=== PATIENT | male | born 1955 | race Caucasian/White ===

== ENCOUNTER 2022-12-28 06:05 | Observation (INO) ==
--- NOTE | 2022-12-21 15:20 | XRay Report ---
INDICATION: pre surgery TECHNIQUE: PA and lateral upright chest x-ray COMPARISON: Previous chest x-rays dated 09/21/2019, 07/02/2019 FINDINGS: Lungs: Lungs are negative. No focal pulmonary parenchymal infiltrate or mass Heart, vascular: No significant cardiomegaly. Pulmonary vascularity is normal. No pulmonary edema or pulmonary congestion Mediastinum, abril: No mediastinal widening. No hilar mass Pleura:No pleural fluid. No pleural-based mass or calcification Thoracic spine, ribs: No thoracic compression fracture. Ribs are negative. No fracture. No lytic lesion IMPRESSION: 1. Negative PA and lateral chest x-ray 2. No significant interval change Interpreted and Authenticated by: Vin Mcgowan 12/21/22
[2022-12-21 18:36] LABS: Basophils # (Auto) 0.07 K/mcL (0.00-0.30); Basophils % (Auto) 0.7 % (0.0-2.0); Eosinophils # (Auto) 0.35 K/mcL (0.00-0.70); Eosinophils % (Auto) 3.6 % (0.0-7.0); Hematocrit 44.5 % (40.1-51.0); Hemoglobin 14.2 g/dL (13.7-17.5); Lymphocytes % (Auto) 23.7 % (15.5-49.0); Mean Cell Volume 89.5 fL (80.0-100.0); Mean Corpuscular HGB Conc 31.9 g/dL (31.0-36.0); Mean Platelet Volume 11.8 fL (8.8-12.5); Monocytes # (Auto) 1.04 K/mcL (0.10-0.90); Monocytes % (Auto) 10.7 % (1.0-12.0); Neutrophils % (Auto) 60.9 % (38.0-78.0); Platelet Count 243 K/mcL (140-440); RBC 4.97 M/mcL (4.63-6.08); WBC 9.7 K/mcL (4.5-11.0)
[2022-12-21 19:07] LABS: INR 1.1 (0.9-1.1); Prothrombin Time 14.1 sec (11.9-14.5)
[2022-12-21 21:45] LABS: ALT/SGPT 22 U/L (<40); AST/SGOT 15 U/L (<40); Albumin 4.3 gm/dL (3.2-5.2); Albumin/Globulin Ratio 1.2 (1.0-2.3); Alkaline Phosphatase 80 U/L (39-117); Bilirubin,Total 0.6 mg/dL (0.1-1.0); Blood Urea Nitrogen 15 mg/dL (8-23); Calcium 10.8 mg/dL (8.6-10.4); Carbon Dioxide 26 mmol/L (22-30); Chloride 101 mmol/L (96-108); Globulin 3.5 gm/dL (2.2-3.7); Glomerular Filtration Rate 91; Glucose 142 mg/dL (70-105)
--- NOTE | 2022-12-22 07:34 | EKG ---
[facility] Test Date: 2022-12-21 Pat Name: Cali Adam Department: [facility] Room: Gender: Male Opthalmic Tech: : 1955 Requested By: Waylon Kim Order Number: [id number] Reading MD: Som Huitron Measurements Intervals [place] Rate: 58 P: 42 ID: [id number] QRS: -50 QRSD: 126 T: 31 QT: 479 QTc: 472 Interpretive Statements Sinus rhythm Consider left atrial enlargement RBBB Electronically Signed On 12-22-2022 7:34:05 PST by Som Huitron /store/[email or web address]/[id number]
[2022-12-24 15:04] LABS: Estimated Average Glucose(eAG) 177 mg/dL; Hemoglobin A1C 7.8 % Hgb (4.0-6.0)
[2022-12-28] MEDS ORDERED: ceFAZolin 2 GM in DEXTROSE 5% IN WATER 50 ML IV SCH (06:45)
[2022-12-28] MEDS ORDERED: VANCOMYCIN 1,500 MG in 0.9 % SODIUM CHLORIDE 500 ML IV SCH (07:15)
[2022-12-28] MEDS ORDERED: GLYCOPYRROLATE 0.2 MG/ML VIAL IV ONE (07:27)
[2022-12-28] MEDS ORDERED: SUCCINYLCHOLINE 20 MG/ML ML IV ONE (07:27)
[2022-12-28] MEDS ORDERED: ePHEDrine 50 MG/5 ML SYRINGE (ANEST) IV ONE (07:27)
[2022-12-28] MEDS ORDERED: SUGAMMADEX SODIUM 200 MG/2 ML VIAL IV ONE (07:27)
[2022-12-28] MEDS ORDERED: ROCURONIUM 10 MG/ML ML IV ONE (07:27)
[2022-12-28] MEDS ORDERED: PHENYLephrine 1 MG/10 ML SYRINGE (ANEST) ONE (07:27)
[2022-12-28] MEDS ORDERED: fentaNYL 250 MCG/5 ML VIAL IV ONE (07:27)
[2022-12-28] MEDS ORDERED: DEXAMETHASONE 10 MG/ML VIAL ONE (07:27)
[2022-12-28] MEDS ORDERED: LIDOCAINE HCL/PF 100 MG/5 ML SYRINGE IV ONE (07:27)
[2022-12-28] MEDS ORDERED: PROPOFOL 200 MG/20 ML VIAL IV ONE (07:27)
[2022-12-28] MEDS ORDERED: ONDANSETRON 4 MG/2 ML VIAL ONE (07:27)
[2022-12-28] MEDS ORDERED: MAGNESIUM SULFATE 2 GM/50 ML BAG IV ONE (07:27)
[2022-12-28] MEDS ORDERED: BUPIVACAINE W/EPI 0.25% 50 ML VIAL IJ ONE (07:30)
[2022-12-28] MEDS ORDERED: MEPERIDINE 25 MG/ML VIAL IV PRN (09:08)
[2022-12-28] MEDS ORDERED: ONDANSETRON 4 MG/2 ML VIAL IV PRN ×2 (09:08→10:08)
[2022-12-28] MEDS ORDERED: IPRATROPIUM/ALBUTEROL 3 ML AMPUL.NEB NEB PRN (09:08)
[2022-12-28] MEDS ORDERED: ACETAMINOPHEN 1,000 MG/100 ML BAG IV ONE (09:08)
[2022-12-28] MEDS ORDERED: HYDROmorphone 0.5 MG/0.5 ML SYRINGE IV PRN (09:08)
[2022-12-28] MEDS ORDERED: METHOCARBAMOL 1,000 MG/10 ML VIAL IV PRN (09:08)
[2022-12-28] MEDS: fentaNYL 100 MCG/2 ML VIAL IV PRN ×4 (10:42→10:48)
--- NOTE | 2022-12-28 12:15 | Brief Operative Note ---
Brief Operative Note Date of procedure: 12/28/22 Pre-op diagnosis: Symptomatic Cholelithiasis Post-op diagnosis: same Procedure: 1. Laparoscopic Lysis of Adhesions 2. Laparoscopic Cholecystectomy Grafts/Implants: No Anesthesia: GETA Findings: 1. Significant adhesions to anterior abdominal wall from prior procedures 2. Moderately edematous stone filled gallbladder Complications: none Surgeon: Waylon Kim Estimated blood loss (cc): 5 Specimens Removed/Pathology: other (gallbladder ) Condition: stable Disposition: PACU
[2022-12-28] MEDS: oxyCODONE HCL 5 MG TABLET PO PRN ×4 (12:19→23:55)
[2022-12-28] MEDS: HYDROmorphone 0.5 MG/0.5 ML SYRINGE IV PRN ×2 (13:10→14:24)
[2022-12-28] MEDS: DEXTROSE 5%-LR 1,000 ML IV SCH (13:19)
[2022-12-28] MEDS: ACETAMINOPHEN 650 MG/65 ML BAG IV SCH (17:56)
[2022-12-29] MEDS: ACETAMINOPHEN 650 MG/65 ML BAG IV SCH ×3 (02:39→18:01)
[2022-12-29] MEDS: HYDROmorphone 0.5 MG/0.5 ML SYRINGE IV PRN (02:51)
[2022-12-29] MEDS: DEXTROSE 5%-LR 1,000 ML IV SCH ×3 (05:09→19:45)
[2022-12-29 07:21] LABS: Hematocrit 38.9 % (40.1-51.0); Hemoglobin 12.8 g/dL (13.7-17.5); Mean Cell Volume 88.8 fL (80.0-100.0); Mean Corpuscular HGB Conc 32.9 g/dL (31.0-36.0); Mean Platelet Volume 12.2 fL (8.8-12.5); Platelet Count 211 K/mcL (140-440); RBC 4.38 M/mcL (4.63-6.08); Red Cell Distribution Width 13.5 % (11.5-14.5); WBC 22.3 K/mcL (4.5-11.0)
[2022-12-29 07:42] LABS: ALT/SGPT 22 U/L (<40); AST/SGOT 17 U/L (<40); Albumin 3.4 gm/dL (3.2-5.2); Albumin/Globulin Ratio 1.3 (1.0-2.3); Alkaline Phosphatase 64 U/L (39-117); Bilirubin,Total 0.6 mg/dL (0.1-1.0); Blood Urea Nitrogen 17 mg/dL (8-23); Calcium 8.4 mg/dL (8.6-10.4); Carbon Dioxide 26 mmol/L (22-30); Chloride 99 mmol/L (96-108); Globulin 2.7 gm/dL (2.2-3.7); Glomerular Filtration Rate 86; Glucose 171 mg/dL (70-105)
[2022-12-29] MEDS: oxyCODONE HCL 5 MG TABLET PO PRN ×2 (08:37→18:03)
[2022-12-29] MEDS ORDERED: BISACODYL 10 MG SUPP.RECT PR SCH (09:33)
--- NOTE | 2022-12-29 09:33 | General Surgery Progress Note ---
SUBJECTIVE Subjective Patient information: Note initiated : 12/29/22 at 9:28 am Service Date, if different from initiated Date: [] Patient: Cali Adam 67 y/o M admitted on 12/28/22 for Laparoscopic Cholecystectomy . Chief Complaint: [] feels well this am, not passing gas yet, pain control has been good Constitutional Vitals: Vital Signs Temp Pulse Resp BP Pulse Ox O2 Del Method O2 Flow Rate 98.1 F 65 20 127/75 95 Room Air 6 12/29/22 08:00 12/29/22 08:00 12/29/22 08:00 12/29/22 08:00 12/29/22 08:00 12/29/22 08:00 12/28/22 10:13 Period Temp Pulse Resp BP Sys/Franco Pulse Ox O2 Del Method O2 Flow Rate Last 24 Hr 97.0 F-98.2 F 46-82 10-20 96-157/49-85 86-98 Room Air-Simple Mask 6-6 Intake and Output 12/28/22 12/29/22 12/29/22 19:59 03:59 11:59 Intake Total 545 1065 200 Output Total 530 300 Balance 15 765 200 Weight 194 lb 14.4 oz Intake & Output: Intake & Output 12/28/22 12/29/22 12/29/22 19:59 03:59 11:59 Intake Total 545 1065 200 Output Total 530 300 Balance 15 765 200 Weight 194 lb 14.4 oz Intake: IV 65 1065 Dextrose 5%-Lactated Ringers 1, 1000 000 ml @ 75 mls/hr IV .[id number] [facility] Rx#:[id number] Oral 480 200 Output: Drainage 60 Right Lower Abdomen 60 Drainage 45 50 Right Lower Abdomen 45 50 Void Amount 425 250 Other: Meal Dinner Percent of Meal Consumed 100% Feeding Ability Independent Urine Appearance Clear Clear Urine Color Yellow Yellow Exam: Looks well, non toxic Respiratory Respiratory exam: Present normal respiratory exam Additional comments: Normal effort and no distress Cardiovascular Cardiovascular exam: Present normal rate and rhythm and RRR GI/Abdominal Additional comments: soft with mild distension, non tender, drain serosang, trocar sites look good Extremities Exam Additional comments: well perfused A/P Assessment and plan (1) Status post laparoscopic cholecystectomy: Assessment and plan: POD #1 Laparoscopic Cholecystectomy Clinically looks well Elevated WBC likely reactive Increase activity and add suppositories, hold discharge for now Status: Acute Time Spent With Patient Time: Total time spent is greater than 50% in coordination of care (as documented) at patient's floor/unit and/or counseling patient:
--- NOTE | 2022-12-29 19:05 | Internal Medicine Consult Note ---
HPI Date of Consult Consult Date: 12/29/22 Primary Care Provider: Nikia Matos Consult Narrative Patient Information: Note initiated : 12/29/22 at 7:04 pm Service Date, if different from initiated Date: [] Patient: Cali Adam 67 y/o M admitted on 12/28/22 for Laparoscopic Cholecystectomy . Chief Complaint: [] cc:: CC: Waylon Kim MD Patient presented for elective cholecystectomy for symptomatic cholelithiasis with biliary colic. Patient underwent laparoscopic cholecystectomy and lysis of adhesions on the . Gallbladder was noted to be moderately edematous and filled with stones. Patient also carries a history of diabetes and and hypertension and history of prothrombin gene mutation on Eliquis. Medical management requested. Surgeon awaiting bowel function. Patient does complain of abdominal pain. He is passing gas but no bowel movements. Review of Systems: denies headache/fever/chills/nausea/vomiting/chest pain/cough/dyspnea/diarrhea. Otherwise see above. Review of Systems: Pertinent positives as above. Denies headache/fever/chills/nausea/vomiting/chest or abdominal pain/cough/dyspnea/diarrhea. Remaining 10 point review of system reviewed negative PFSH PFSH All Active Problems Status post laparoscopic cholecystectomy (Acute) Calculus of gallbladder (Chronic) Hypertension (Chronic) Diabetes mellitus (Chronic) Dyshidrotic eczema (Chronic) Poor appetite (Chronic) Bowel habit changes (Chronic) Stomach pain (Chronic) Ringing of ears (Chronic) Joint pain (Chronic) Arthritis (Chronic) Hay fever (Chronic) Hernia (Chronic) Stroke (Chronic) Erectile dysfunction (Chronic) Nephrolithiasis (Chronic) Hematuria (Acute) No-show for appointment (Acute) Gout (Acute) Medical History Arthritis Bowel habit changes Calculus of gallbladder Diabetes mellitus Type 2 on insulin No proteinuria on ARB Nl GFR Dyshidrotic eczema Erectile dysfunction Hay fever Hernia Hypertension Long standing Normal adrenal and renal imaging except left sided nephrolithiasis with stent in 2018 Joint pain Poor appetite Ringing of ears Stomach pain Stroke Surgical History History of ankle surgery (~1987) Left History of back surgery (~1968) Broken back History of hernia repair History of knee surgery (~1985) Right History of partial colectomy (~11/2019) History of surgery (~06/2019) Left ureteral stent Family History Father Heart attack Arthritis Hypertension Mother Cancer Social History marital status: unknown occupational status: retired smoking status: Former smoker MEDS/ALLERGIES Home Medications and Allergies Home Medications Medication Instructions Recorded Confirmed Type amlodipine 10 mg tablet 10 mg PO QDAY 12/25/21 12/21/22 History apixaban 5 mg tablet (Eliquis) 5 mg PO BID 12/25/21 12/21/22 History carvedilol 25 mg tablet 25 mg PO BID 12/25/21 12/21/22 History clobetasol 0.05 % topical cream 1 applic topical BID 12/25/21 12/21/22 History insulin aspart U-100 100 unit/mL 1 sliding scale dose subcut 12/25/21 12/21/22 History (3 mL) subcutaneous pen (Novolog USEASDIRECTD FlexPen U-100 Insulin aspart) insulin detemir U-100 100 unit/mL 20 unit subcut QHS 12/25/21 12/21/22 History subcutaneous solution (Levemir U-100 Insulin) irbesartan 300 mg tablet 300 mg PO QDAY 12/25/21 12/21/22 History metformin 500 mg tablet 500 mg PO BID 12/25/21 12/21/22 History potassium chloride 20 mEq 20 meq PO QDAY 12/25/21 12/21/22 History tablet,extended release(part/cryst) (Klor-Con M) triamcinolone acetonide 0.5 % 1 applic topical BID 12/25/21 12/21/22 History topical cream zinc 50 mg tablet 50 mg PO QDAY 12/25/21 12/21/22 History cholecalciferol (vitamin D3) 100 mcg PO DAILY 12/30/21 12/21/22 History hydrochlorothiazide 25 mg tablet 25 mg PO QAM #30 tabs 12/30/21 12/21/22 Rx [place] Xl 1 cap PO DAILY 12/21/22 12/21/22 History doxazosin 1 mg tablet 1 mg PO BID 12/21/22 12/21/22 History vitamin B complex (B 1 tab PO QDAY 12/21/22 12/21/22 History Complex-Vitamin B12 tablet) Allergies Allergy/AdvReac Type Severity Reaction Status Date / Time ciprofloxacin [From Cipro] Allergy Unknown Unknown Verified 12/28/22 06:20 Penicillins Allergy Unknown Unknown Verified 12/28/22 06:20 EXAM Constitutional Vitals: Temp Pulse Resp BP Pulse Ox O2 Del Method O2 Flow Rate 98.7 F 66 20 121/78 96 Room Air 6 12/29/22 16:00 12/29/22 16:00 12/29/22 16:00 12/29/22 16:00 12/29/22 16:00 12/29/22 16:00 12/28/22 10:13 DATA Data Completed and Pending Labs: Labs from last 24 hours 12/29/22 12/29/22 05:22 05:22 WBC 22.3 H RBC 4.38 L Hgb 12.8 L Hct 38.9 L MCV 88.8 MCH 29.2 MCHC 32.9 RDW 13.5 Plt Count 211 MPV 12.2 Sodium 134 Potassium 3.5 Chloride 99 Carbon Dioxide 26 Anion Gap 9.0 BUN 17 Creatinine 0.9 GFR Calculation 86 Glucose 171 H Calcium 8.4 L Total Bilirubin 0.6 AST 17 ALT 22 Alkaline Phosphatase 64 Total Protein 6.1 Albumin 3.4 Globulin 2.7 Albumin/Globulin Ratio 1.3 A/P Narrative A/P Narrative: A/P: *s/p Lap cholecystectomy and lysis of adhesions (12/28) -per surgeon, and awaiting bowel fxn -IVF's/diet per surgeon *DM2: -decrease home basal dose for decreased PO intake and titrate back up, SSI *HTN: on norvasc/coreg/irbesartan/doxazosin -restart BP gradually as needed, BP currently ok w/o meds *Prothrombin gene mutation: On Eliquis, temporarily held periop *DVT ppx: per surgery Time Spent With Patient Time: Total time spent is greater than 50% in coordination of care (as documented) at patient's floor/unit and/or counseling patient: Initial: Total time with patient: 55 - 74 minutes
[2022-12-29] MEDS ORDERED: DEXTROSE 31 GM ORAL.SUSP PO PRN (20:07)
[2022-12-29] MEDS ORDERED: DEXTROSE 50% 50 ML VIAL IV PRN (20:07)
[2022-12-29] MEDS ORDERED: hydrALAZINE 20 MG/ML VIAL IV PRN (20:15)
[2022-12-29] MEDS ORDERED: ENALAPRILAT 1.25 MG/ML VIAL IV PRN (20:15)
[2022-12-29] MEDS ORDERED: INSULIN GLARGINE, HUMAN 1 UNIT/0.01 ML SQ SCH (21:00)
[2022-12-29] MEDS: DOXAZOSIN 1 MG TABLET PO SCH (21:22)
[2022-12-29] MEDS: INSULIN LISPRO 1 UNIT/0.01 ML UNIT SQ SCH (21:32)
[2022-12-29] MEDS ORDERED: BISACODYL 10 MG SUPP.RECT PR PRN (22:50)
[2022-12-30] MEDS: ACETAMINOPHEN 650 MG/65 ML BAG IV SCH ×3 (02:00→08:32)
[2022-12-30] MEDS: DEXTROSE 5%-LR 1,000 ML IV SCH (04:51)
[2022-12-30 06:51] LABS: Hemoglobin 12.7 g/dL (13.7-17.5); Mean Cell Volume 89.2 fL (80.0-100.0); Mean Corpuscular HGB Conc 32.6 g/dL (31.0-36.0); Mean Platelet Volume 11.6 fL (8.8-12.5); Platelet Count 180 K/mcL (140-440); RBC 4.37 M/mcL (4.63-6.08); Red Cell Distribution Width 13.6 % (11.5-14.5); WBC 12.4 K/mcL (4.5-11.0)
[2022-12-30 07:17] LABS: ALT/SGPT 28 U/L (<40); AST/SGOT 20 U/L (<40); Albumin 3.4 gm/dL (3.2-5.2); Albumin/Globulin Ratio 1.2 (1.0-2.3); Alkaline Phosphatase 70 U/L (39-117); Bilirubin,Total 0.8 mg/dL (0.1-1.0); Blood Urea Nitrogen 10 mg/dL (8-23); Calcium 8.4 mg/dL (8.6-10.4); Carbon Dioxide 29 mmol/L (22-30); Chloride 102 mmol/L (96-108); Globulin 2.8 gm/dL (2.2-3.7); Glomerular Filtration Rate 96; Glucose 138 mg/dL (70-105)
--- NOTE | 2022-12-30 07:52 | Operative Note ---
DATE OF OPERATION: 12/28/2022 DATE OF PROCEDURE: 12/28/2022 PREOPERATIVE DIAGNOSIS: Symptomatic cholelithiasis with episodes of biliary colic. POSTOPERATIVE DIAGNOSIS: Symptomatic cholelithiasis with episodes of biliary colic. OPERATIVE PROCEDURE: 1. Laparoscopic lysis of adhesions. 2. Laparoscopic cholecystectomy. SURGEON: Waylon Kim M.D. ANESTHESIA: General. PREOPERATIVE MEDICATIONS: Vancomycin IV. INDICATIONS: The patient is a 67-year-old male who has had a fair amount of abdominal malaise and symptomatology over the past several years. Some of his symptoms have been consistent with potential symptomatic cholelithiasis, but much of his symptomatology has not. Imaging is consistent with ultrasound as well as CT, both of which have confirmed and demonstrated an extensive number of stones in the gallbladder, but no evidence of wall thickening or other abnormalities in that regard. After several visits and consultations he very much wished to undergo surgery in hopes that this gallbladder removal would resolve much of his symptomatology. We discussed with him at length the fact that given his Eliquis and other medical issues and concerns that he had some significant risk related to having this procedure, but he wished to proceed regardless. Risks, benefits, potential complications, and alternative treatment options were all discussed at length, including but not limited to bleeding, infection, cosmetic dissatisfaction, abnormal scarring and other issues. He gave full informed consent and wished to proceed. We also discussed the potential need for drain placement, conversion to open, partial or fenestrating subtotal cholecystectomy, risk of injury to bowel and other structures, particularly given his extensive prior operative history and other issues and in particular the placement of a large mesh on the abdominal wall that we had placed previously. All this was discussed at length. He gave full informed consent and wished to proceed. DESCRIPTION OF PROCEDURE: The patient was taken to the OR and placed supine on the OR table, placed under general anesthesia and intubated. Bilateral SCDs were applied and pressure sensitive areas were carefully padded. The abdomen was widely prepped and draped in a sterile fashion. Procedure began with access of the peritoneal cavity utilizing a 0-degree, 5-mm scope through a Visiport in the right upper abdomen. Once we obtained pneumoperitoneum via peritoneal access the 0-degree scope was utilized to access evaluate the area of access for any evidence of injury; none was seen. We then changed out the 0-degree scope for a 30-degree scope and placed our remaining trocars. This included an additional 5 mm right upper abdominal trocar and a 12 mm subxiphoid trocar, both of which were easily placed and then we performed a fairly extensive laparoscopic lysis of adhesions to take down what appeared to be a large amount of omentum to the area of our intended periumbilical 5 mm port in, in and around the area of the previously placed abdominal mesh. This was all done sharply. No thermal energy was used to take down any adhesions at all. This was all done sharply under direct vision and we gradually cleared off an area just superior to the mesh in the midline that would allow us to place a supraumbilical 5 mm trocar and clear the mesh without injuring or damaging it. Once we cleared this area off adequately, we were able to go ahead and place an additional final 5 mm working trocar in a supraumbilical location midway between the umbilicus and the xiphoid process. We then placed the patient in reverse Trendelenburg position, airplaned towards the left side. The gallbladder fundus was identified, grasped and retracted towards the right shoulder. There were adhesions to the mesentery to the omentum and the mesentery of the transverse colon as well as the duodenum. These were all taken down sharply, again no thermal energy was used here. Once we had taken these down extensively, we were able to elevate and liberate the gallbladder towards the right shoulder and then focused our dissection on the hepatocystic triangle. We performed a very extensive anterior and posterior dissection of the hepatocystic triangle. We then very quickly and easily identified the cystic duct as well as branches of the cystic artery coursing up through the gallbladder. The right hepatic artery could be seen at the base of the dissection. We obtained our critical view of safety and then performed a very extensive medial cystic plate dissection, again widening and improving our critical view of safety to assure there were no interposed structures here, none were seen. At this point, we made preparations for transection of a dominant branch of the cystic artery that seemed to be coursing up from the right hepatic artery. It was clamped twice on in vivo side and then divided between the clips and the gallbladder itself with cautery without difficulty. We then brought the 35 mm endovascular CHRISTOPH stapler into the field and transected the gallbladder neck at its junction point with the cystic duct, again under direct vision without difficulty. At this point, we were able to grasp the staple line and retracted further cephalad and then very quickly completed the remainder of the dissection, much of which had already been completed with the extensive cystic plate dissection we already performed. The gallbladder was placed in an EndoCatch and removed through the subxiphoid trocar without difficulty. It was examined on the back table and sent to pathology. The gallbladder itself had been edematous and appeared to be chronically inflamed and was extensively packed with stones. Small rents in the gallbladder had occurred when we were grasping it, given its somewhat friable nature, but there was no observed spillage of stones or bile intraperitoneally. We irrigated the area out extensively to make sure there was no active bleeding or hemorrhage, none was seen. I elected to go ahead and bring a drain into the field through the most lateral right upper abdominal 5 mm working trocar site. A 19-Lith[place]ian round Casey drain was positioned in the subhepatic space along the dissection bed and secured in place with a 3-0 silk stitch without difficulty. We then removed the 12 mm trocar site and closed it with the fascial closure device utilizing an interrupted 0 Vicryl suture and then interrupted 3-0 Vicryl sutures were utilized to close the remaining incisions after the trocars were removed under direct vision and pneumoperitoneum was relieved. Once the incisions were closed, Steri-Strips and sterile dressings were applied. The patient was awakened, extubated, and transferred to PACU in satisfactory condition. No apparent complications or issues. Sponge and instrument counts were correct. Findings were discussed above. BW:dayron Job ID: [id number] Doc ID: [id number] Waylon Kim M.D.
[2022-12-30] MEDS: DOXAZOSIN 1 MG TABLET PO SCH (07:56)
[2022-12-30] MEDS: HYDROmorphone 0.5 MG/0.5 ML SYRINGE IV PRN (08:00)
[2022-12-30] MEDS: INSULIN LISPRO 1 UNIT/0.01 ML UNIT SQ SCH (08:31)
--- NOTE | 2022-12-30 08:54 | Internal Med Progress Note ---
SUBJECTIVE Subjective Patient information: Note initiated : 12/30/22 at 8:49 am Service Date, if different from initiated Date: [] Patient: Cali Adam 67 y/o M admitted on 12/28/22 for Laparoscopic Cholecystectomy . Chief Complaint: [] Interval history: Patient presented for elective cholecystectomy for symptomatic cholelithiasis with biliary colic. Patient underwent laparoscopic cholecystectomy and lysis of adhesions on the . Gallbladder was noted to be moderately edematous and filled with stones. Patient also carries a history of diabetes and and hypertension and history of prothrombin gene mutation on Eliquis. Medical management requested. Surgeon awaiting bowel function. Patient does complain of abdominal pain. He is passing gas but no bowel movements. 12/30 No BMs but passing gas. Abdominal pain little better today more localized to the right upper quadrant. Slept okay. Awaiting bowel function. Review of Systems: denies headache/fever/chills/nausea/vomiting/chest pain/cough/dyspnea/diarrhea. Otherwise see above. PHYSICAL EXAM: General: Alert, Awake, No acute Distress Eyes/N/T: EOMI, no scleral icterus, , Head/Neck: neck supple, full ROM, CV: RRR, No murmurs, Pulm: Clear b/l, no wheezing/rhonchi/rales, no respiratory distress Abd: soft, distended, mild TTP RUQ, decreased BS x4 Ext: no clubbing/cyanosis/edema, nontender Neuro: Alert, no focal deficits, moves all extremities, sensations intact b/l upper/lower Psychiatric: Skin: warm/dry, normal color Constitutional Vitals: Vital Signs Temp Pulse Resp BP Pulse Ox O2 Del Method O2 Flow Rate 98.4 F 69 20 195/99 96 Room Air 6 12/30/22 07:35 12/30/22 07:35 12/30/22 07:35 12/30/22 07:35 12/30/22 07:35 12/30/22 07:35 12/28/22 10:13 Period Temp Pulse Resp BP Sys/Franco Pulse Ox O2 Del Method O2 Flow Rate Last 24 Hr 98 F-98.9 F 65-74 16-20 119-195/59-99 95-98 Room Air-Room Air Intake and Output 12/29/22 12/30/22 12/30/22 19:59 03:59 11:59 Intake Total 805 150 65 Output Total 375 1804 1040 Balance 430 -0137 -979 Weight 88.496 kg Intake & Output: Intake & Output 12/29/22 12/30/22 12/30/22 19:59 03:59 11:59 Intake Total 805 150 65 Output Total 375 1804 1040 Balance 430 -4307 -978 Weight 88.496 kg Intake: IV 65 65 Oral 740 150 Output: Drainage 75 104 40 Right Lower Abdomen 75 104 40 Void Amount 300 1700 1000 Other: Meal Lunch Percent of Meal Consumed 75% Feeding Ability Independent Urine Appearance Clear Clear Clear Urine Color Yellow Yellow Yellow Urine Odor Normal Normal Normal # Voids 1 OBJ DATA Labs 12/30/22 05:55 12/30/22 05:55 Labs: Abnormal Lab Results 12/30/22 12/30/22 12/29/22 05:55 05:55 05:22 WBC 12.4 H RBC 4.37 L Hgb 12.7 L Hct 39.0 L Glucose 138 H 171 H Calcium 8.4 L 8.4 L 12/29/22 05:22 WBC 22.3 H RBC 4.38 L Hgb 12.8 L Hct 38.9 L Glucose Calcium Meds: Medications Bisacodyl (Bisacodyl 10 Mg Supp.Rect) 10 mg SD DAILYP PRN PRN Reason: Constipation Dextrose (Dextrose 50% 50 Ml Vial) 0 ml IV UD PRN PRN Reason: Per Sliding Scale Diagnostic Test (Pha) (Accu-Chek 1 Each Strip) 1 each FS PRN PRN PRN Reason: Diabetic Last Admin: 12/28/22 10:36 Dose: 1 each Diagnostic Test (Pha) (Accu-Chek 1 Each Strip) 1 each FS ACHS [facility] Last Admin: 12/30/22 08:30 Dose: 1 each Doxazosin Mesylate (Doxazosin 1 Mg Tablet) 1 mg PO BID [facility] Last Admin: 12/30/22 07:56 Dose: 1 mg Enalaprilat (Enalaprilat 1.25 Mg/Ml Vial) 0 mg IV Q2HP PRN PRN Reason: Hypertension Glucose (Dextrose 31 Gm Oral.Susp) 15 gm PO PRN PRN PRN Reason: Hypoglycemia Hydralazine HCl (Hydralazine 20 Mg/Ml Vial) 0 mg IV Q2HP PRN PRN Reason: Hypertension Hydromorphone HCl (Hydromorphone 0.5 Mg/0.5 Ml Syringe) 0.5 - 1 mg IV Q1HP PRN; Protocol PRN Reason: Per Pain Protocol Last Admin: 12/30/22 08:00 Dose: 0.5 mg Acetaminophen (Ofirmev) 650 mg in 65 mls @ 130 mls/hr IV Q8H PAT; Protocol Last Admin: 12/30/22 08:32 Dose: Not Given Dextrose/Lactated Ringer's (Dextrose 5%-Lactated Ringers) 1,000 mls @ 100 mls/hr IV .Q10H PAT Last Admin: 12/30/22 04:51 Dose: Not Given Insulin Glargine (Insulin Glargine, Human 1 Unit/0.01 Ml) 20 unit SQ HS PAT Last Admin: 12/29/22 21:32 Dose: 20 units Insulin Human Lispro (Insulin Lispro 1 Unit/0.01 Ml Unit) 0 unit SQ ACHS PAT; Protocol Last Admin: 12/30/22 08:31 Dose: Not Given Ondansetron HCl (Ondansetron 4 Mg/2 Ml Vial) 4 mg IV Q6HP PRN PRN Reason: Nausea And Vomiting Last Admin: 12/30/22 00:14 Dose: 4 mg Oxycodone HCl (Oxycodone Hcl 5 Mg Tablet) 5 - 10 mg PO Q4-6HP PRN; Protocol PRN Reason: Per Pain Protocol Last Admin: 12/29/22 18:03 Dose: 10 mg A/P Narrative A/P Narrative: A/P: *s/p Lap cholecystectomy and lysis of adhesions (12/28) -per surgeon, and awaiting bowel fxn -IVF's/diet per surgeon *DM2: -basal and SSI *HTN: on norvasc/coreg/irbesartan/doxazosin -restart BP meds, cont pr IV *Prothrombin gene mutation: On Eliquis, temporarily held periop *DVT ppx: per surgery Time Spent With Patient Time: Total time spent is greater than 50% in coordination of care (as documented) at patient's floor/unit and/or counseling patient: Subsequent: Total time with patient: 25 - 34 minutes QUALITY VTE Deep Vein Thrombosis/Pulmonary Embolism Present on Admission: No
[2022-12-30] MEDS ORDERED: amLODIPine 10 MG TABLET PO SCH (09:00)
[2022-12-30] MEDS ORDERED: CARVEDILOL 12.5 MG TABLET PO SCH (09:00)
--- NOTE | 2022-12-30 09:35 | General Surgery Progress Note ---
SUBJECTIVE Subjective Patient information: Note initiated : 12/30/22 at 9:32 am Service Date, if different from initiated Date: [] Patient: Cali Adam 67 y/o M admitted on 12/28/22 for Laparoscopic Cholecystectomy . Chief Complaint: [] Feels well this am, tolerating a diet without issue, passing gas and having good bowel function Constitutional Vitals: Vital Signs Temp Pulse Resp BP Pulse Ox O2 Del Method O2 Flow Rate 98.4 F 69 20 180/60 96 Room Air 6 12/30/22 07:35 12/30/22 07:35 12/30/22 07:35 12/30/22 09:20 12/30/22 07:35 12/30/22 07:35 12/28/22 10:13 Period Temp Pulse Resp BP Sys/Franco Pulse Ox O2 Del Method O2 Flow Rate Last 24 Hr 98 F-98.9 F 65-74 16-20 119-195/59-99 95-98 Room Air-Room Air Intake and Output 12/29/22 12/30/22 12/30/22 19:59 03:59 11:59 Intake Total 805 150 65 Output Total 375 1804 1040 Balance 430 -1654 -975 Weight 195 lb 1.6 oz Intake & Output: Intake & Output 12/29/22 12/30/22 12/30/22 19:59 03:59 11:59 Intake Total 805 150 65 Output Total 375 1804 1040 Balance 430 -1654 -975 Weight 195 lb 1.6 oz Intake: IV 65 65 Oral 740 150 Output: Drainage 75 104 40 Right Lower Abdomen 75 104 40 Void Amount 300 1700 1000 Other: Meal Lunch Percent of Meal Consumed 75% Feeding Ability Independent Urine Appearance Clear Clear Clear Urine Color Yellow Yellow Yellow Urine Odor Normal Normal Normal # Voids 1 Exam: Looks well, NAD Respiratory Respiratory exam: Present normal respiratory exam Additional comments: normal effort without distress Cardiovascular Cardiovascular exam: Present normal rate and rhythm and RRR GI/Abdominal Additional comments: soft and non tender, non distended drain benign and non enteric Extremities Exam Additional comments: well perfused A/P Assessment and plan (1) Status post laparoscopic cholecystectomy: Assessment and plan: POD #2 Lap Cholecystectomy Doing well Home today with drain removal prior to discharge Status: Acute Time Spent With Patient Time: Total time spent is greater than 50% in coordination of care (as documented) at patient's floor/unit and/or counseling patient:
== END 2022-12-30 11:28 | disposition home or self-care (01) ==
LOC: SUR 06:05 → MEDSUR 06:05
PROVIDERS: ADMIT Surgery Surgical Critical Care; ATTEND Surgery Surgical Critical Care